=== PATIENT | male | born 2005 | race Caucasian/White ===

== ENCOUNTER 2025-01-21 18:12 | Emergency (ER) | payer OTHER, SELFPAY ==
[2025-01-21 18:14] VITALS: BP 163/66
[2025-01-21 20:08] VITALS: BMI 21.4
--- NOTE | 2025-01-21 20:09 | EDRN ---
Pt says he had heart palpitations and nausea x 2 days and adds when he eats, he feels bloated afterwards. Pt currently feels palpitations, a fluttering in his chest. No cp, sob, abd pain, vomiting, fever/chills/cough. No caffeine and occasional
alcohol. No more stress than usual. Pt has been drinking fluids. Pt is a nonsmoker.
[2025-01-21 20:14] VITALS: BP 131/81
--- NOTE | 2025-01-21 20:19 | ED.GENMED ---
History of Present Illness
General
Chief Complaint: Heart Rate Problem
Time Seen by Provider: 01/21/25 19:48
History of Present Illness
History of Present Illness:
Patient is a 19-year-old man who is otherwise healthy presenting to the emergency department palpitations. Patient said for the past 2 days he feels palpitations, pounding sensation as well as a fluttering sensation. It has been constant. No
chest pain. No difficulty breathing. No hemoptysis leg swelling long car rides or plane rides prior to the event. No recent illnesses. No caffeine use. No family history of cardiac arrhythmia or early cardiac disease. No family history of
thyroid problems. Patient does state that he uses creatine. Otherwise no supplements. Denies any alcohol or drug use. This has never happened to him before.
With parents out of the room patient does admit to alcohol use as well as caffeine but this was a week ago. No recent ingestions. No other alcohol or drug use that patient endorses.
Phy Exam
Physical Exam
Physical Exam:
GENERAL: in no acute distress
HEENT: normocephalic, extraocular movements intact, moist oral mucosa
NECK: normal inspection
RESPIRATORY: no respiratory distress, clear to auscultation bilaterally
CARDIOVASCULAR: regular rate and rhythm
ABDOMEN/: soft, non-distended, non-tender to palpation, no rebound or guarding
EXTREMITIES: non-tender, no edema/swelling
NEUROLOGIC: awake and alert, moves all extremities
SKIN: warm
Course
Orders/Labs/Results
Orders:
Orders
01/21/25 18:17
ECG [Electrocardiogram (*1)] Urgent
Reason for Study: Palpitations
01/21/25 18:18
EKG- Treatment ONCE
01/21/25 20:19
Basic Metabolic Panel Urgent
Complete Blood Count/With Diff Urgent
Magnesium Urgent
Thyroid profile [TSH Reflex To Free T4] Urgent
01/21/25 21:10
EKG [Electrocardiogram (*1)] Urgent
Reason for Study: Tachycardia
EKG- Treatment ONCE
01/21/25 21:23
D-Dimer Urgent
01/21/25 21:32
Lorazepam [Ativan] 0.5 mg PO NOW STA
01/21/25 22:15
Lorazepam [Ativan] 1 mg PO NOW STA
Abnormal Lab Results
01/21/25
20:19
RBC 4.64 L 10^6/uL
(4.70-6.10)
Abs Immat Gran (auto) 0.1 H 10^3/uL
(0-0.05)
Immature Gran % 0.9 H %
(0-0.5)
Creatinine 1.4 H mg/dL
(0.7-1.3)
01/21/25 20:19
01/21/25 20:19
Vital Signs
Initial and Last Documented VS:
Initial Vital Signs
Temp Pulse Resp BP Pulse Ox
97.5 F 81 20 163/66 99
01/21/25 18:14 01/21/25 18:14 01/21/25 18:14 01/21/25 18:14 01/21/25 18:14
Last Documented Vital Signs
Temp Pulse Resp BP Pulse Ox
97.9 F 100 13 133/71 99
01/21/25 22:55 01/21/25 23:30 01/21/25 23:15 01/21/25 23:04 01/21/25 20:22
MDM/Problems Addressed
Differential Diagnosis Includes:
Patient is a 19-year-old man who is otherwise healthy presenting to the emergency department with palpitations for the past 2 days. On arrival vitals are notable for hypertension and exam is otherwise reassuring. Differential consist of cardiac
arrhythmia versus metabolic derangement versus thyroid abnormality. History and exam not consistent with PE or MO. Will check blood work. EKG per my interpretation normal sinus rhythm.
*Pulse Oximetry
SaO2: 99
Oxygen Mode of Delivery: Room air
Patient hypoxic: no
*Critical Care Note
Total Time (30-74mins, 75-104mins- exclusive of procedures): Not Applicable
Update Note
Update Note:
On reevaluation patient resting comfortably. His heart rate remained in the 90s.
Patient rang casillas and upon evaluation patient states that he noticed his heart rate creeping up. The alarm started ringing for high heart rate which made patient extremely nervous and his heart rate went up to the 130s. Is now been persistently in
the 130s. Patient has been having shakes. He does state that he feels pins and needle sensation in his hands. He was having clammy hands as well. Patient states that he is usually not a nervous person. Patient did have a recent flight though it
was after the palpitations started. After shared decision making we will obtain dimer. Will also give Ativan and reassess.
Dimer negative. Blood work otherwise reassuring. Repeat EKG does show sinus tachycardia. After the Ativan patient does feel much better. He states that the shakes have gotten a lot better. He was afebrile. His heart rate has not been in the
low 100s persistently. I did discuss with patient about reaching out to cardiology/possible admission for observation. However patient declined given that he has been feeling better and has remained better for almost an hour. I did complete a
bedside echo which I did not see a large effusion with a normal ejection fraction. No Gavin sign or flattening of the septum. After lengthy discussion with patient and patient's parents at bedside we will discharge patient. He will follow-up
with cardiology.
ED Attending Note
-
Portions of this chart may have been created with voice recognition software.� Occasional wrong word or��sound alike� substitutions may have occurred due to the inherent limitations of voice recognition software.
Discharge Plan
Departure
Patient Disposition: Home (Routine Discharge)
Date of Disposition: 01/21/25
Time of Disposition: 23:38
Patient with high blood pressure during this ER visit?: No
Discharge Problem:
Palpitation
Instructions: Palpitations (DC)
Prescriptions:
No Action
No Current Medications
0
Referrals:
Francisco Zhu MD [Active, Cardiology]
Noris Kaminski DO [Family Provider, Family Practice]
Activity Restrictions/Additional Instructions:
Thank You for choosing [facility].
It was a pleasure meeting you and taking part in your care.
You were seen in the Emergency Department today for palpitations. While you were here we performed blood work, which was reassuring. You likely will benefit from a Holter monitor. Please make sure you have your blood work rechecked as your kidney
function was slightly elevated.
We would like for you to follow up with a marketing content manager for further evaluation. If you experience fever, worsening of your symptoms, or develop any other new or concerning symptoms, please return to the Emergency Department immediately.
Please see the attached sheet for additional information.
Interventions
Interventions:
*Risk Screen - Suicide Last Done: 01/21/25 20:08
*General Assessment Last Done: 01/21/25 18:14
*Neglect/Abuse Screening Last Done: 01/21/25 20:08
*ED- Fall Risk Assessment Last Done: 01/21/25 20:08
*ED COVID-19 Vaccine History Last Done: 01/21/25 20:08
*ED Influenza Vaccine History Last Done: 01/21/25 20:08
ED- Cardiac Assessment Last Done: 01/21/25 20:32
ED- Pulmonary Assessment Last Done: 01/21/25 20:32
Discharge Date and Time
Print Language: PORTUGUESE
[2025-01-21 20:30] LABS: Hematocrit 40.6 % (39.0-52.0); Hemoglobin 14.1 g/dL (13.0-18.0); Mean Corp Hgb Conc. 34.7 g/dL (33.0-37.0); Mean Corpuscular Volume 87.5 fL (80.0-94.0); Nucleated Red Blood Cells % 0 % (-); Platelet Count 287 10^3/uL (130-400); Red Cell Dist. Width 12.0 % (11.5-14.5)
--- NOTE | 2025-01-21 20:34 | EDRN ---
Pt added that after he works out, he takes creatine. Thursday was the last day he took it because he woke with palpitations .
[2025-01-21 20:40] LABS: Blood Urea Nitrogen 19 mg/dl (9-20); Calcium 10.0 mg/dl (8.4-10.2); Carbon Dioxide 28 mmol/L (22-30); Chloride 102 mmol/L (98-107); Estimated Creatinine Clearance 81 ml/min; Glucose 94 mg/dl (70-99); Magnesium 2.1 mg/dl (1.6-2.3); Potassium 3.9 mmol/L (3.5-5.1); Sodium 135 mmol/L (135-145); eGFR > 60.00
[2025-01-21 21:00] VITALS: BP 137/75
--- NOTE | 2025-01-21 21:10 | EDRN ---
Pt's HR went into 140's, currently 120's-130's. Pt says he was 'just sitting here' when the monitor started alarming which made him nervous. Pt requested ice water to drink. Pt given 2 large cups ice water. Pt then said his hands were sweaty.
Dr Montaño informed and requested repeat EKG.
[2025-01-21] MEDS: ATIVAN 0.5 MG PO (21:35)
[2025-01-21 22:00] VITALS: BP 128/92
[2025-01-21 22:00] LABS: D-Dimer 0.28 ug/mlFEU (0.00-0.50)
[2025-01-21] MEDS: ATIVAN 1 MG PO (22:38)
[2025-01-21 23:04] VITALS: BP 133/71
--- NOTE | 2025-01-21 23:05 | EDRN ---
Pt went to the bathroom, says he is feeling better, wants to wait a little longer before being discharged. HR 108-112 when this RN and Dr Montaño in room.
== END 2025-01-21 23:55 | disposition home or self-care (01) ==
LOC: EMR 18:12
PROVIDERS: EMERGENCY PHYSICIAN Student in an Organized Health Care Education/Training Program; FAMILY PHYSICIAN Family Medicine
DX: R00.2 Palpitations (principal)
CPT/HCPCS: 99284; 80048; 83735; 84443; 85025; 85379; 93005